=== PATIENT | male | born 1975 | race Caucasian/White ===

== ENCOUNTER 2017-01-13 03:47 | Emergency (ER) | payer OTHER ==
[~2017-01-13] VITALS: Ht 182.9 cm; Wt 90.7 kg
[2017-01-13 04:10] VITALS: BP 144/94
--- NOTE | 2017-01-13 04:16 | NUR ---
AMBULATED TO ER BED 7
--- NOTE | 2017-01-13 04:19 | NUR ---
Patient being evaluated by physician at bedside.
--- NOTE | 2017-01-13 04:25 | NUR ---
41/M CAME IN W C/O ABSCESS BELOW LT ELBOW AFTER CONTACT WITH [facility] 3 DAYS AGO. PT C/O 11/03 PAIN TO SITE. SITE NOTED RED AND SWOLLEN. DENIES NUMBNESS/TINGLING TO LUE, +PMSC. PT AFEBRILE AT THIS TIME, DENIES N/V. NO OTC
[2017-01-13] MEDS ORDERED: CLINDAMYCIN 600 MG/4 ML VIAL IM ONE (04:30)
[2017-01-13] MEDS ORDERED: ACETAMINOPHEN EXTRA STRENGTH 500 MG TAB PO ONE (04:30)
[2017-01-13] MEDS ORDERED: LIDOCAINE/EPI 2% 1:100000 20 ML VIAL INJ ONE ×2 (04:30→04:36)
--- NOTE | 2017-01-13 05:30 | NUR ---
Patient discharged with v/s stable. Written and verbal after care instructions given and explained. Patient alert, oriented and verbalized understanding of instructions. Ambulatory with steady gait. All questions addressed prior to discharge. ID band removed. Patient advised to follow up with PMD. Rx of NAPROSYN, BACTRIM DS, NORCO given. Patient educated on indication of medication including possible reaction and side effects. Opportunity to ask questions provided and answered.
[2017-01-13 05:33] VITALS: BP 136/72
== END 2017-01-13 05:30 | disposition home or self-care (01) ==
LOC: MED 03:47
DX: L02.414 Cutaneous abscess of left upper limb (principal); Z23 Encounter for immunization
CPT/HCPCS: 90471; 90715; 96372; 99284; J2001; J3490

== ENCOUNTER 2017-01-24 00:29 | Emergency (ER) | payer OTHER ==
[~2017-01-24] VITALS: Ht 182.9 cm; Wt 90.7 kg
[2017-01-24 00:46] VITALS: BP 135/80
--- NOTE | 2017-01-24 01:40 | NUR ---
PATIENT PRESENTS TO ED WITH for wound check , abscess on his left forearm for a week PT DENIES N/V/D; SKIN IS PINK/WARM/DRY; AAOX4 WITH EVEN AND STEADY GAIT; LUNGS CLEAR BL; HR EVEN AND REGULAR; PT DENIES ANY FEVER, CP, SOB, OR COUGH AT THIS TIME; PATIENT STATES PAIN OF 0/10 AT THIS TIME; VSS; PATIENT POSITIONED FOR COMFORT; HOB ELEVATED; BEDRAILS UP X2; BED DOWN. ER MD MADE AWARE OF PT STATUS.
--- NOTE | 2017-01-24 01:40 | NUR ---
AMBULATED TO ER BED 1
--- NOTE | 2017-01-24 02:15 | NUR ---
Patient discharged with v/s stable. Written and verbal after care instructions given and explained. Patient verbalized understanding. Ambulatory with steady gait. All questions addressed prior to discharge. Advised to follow up with PMD.
[2017-01-24 03:10] VITALS: BP 135/80
== END 2017-01-24 02:15 | disposition home or self-care (01) ==
LOC: MED 00:29
DX: Z48.01 Encounter for change or removal of surgical wound dressing (principal); R03.0 Elevated blood-pressure reading, without diagnosis of hypertension
CPT/HCPCS: 99281